=== PATIENT | female | born 1960 | race Two or more races ===

== ENCOUNTER 2023-03-20 22:30 | Emergency (ER) | payer MEDICAID ==
[~2023-03-20] VITALS: Ht 157.5 cm; Wt 86.2 kg
[2023-03-20] MEDS ORDERED: ASPIRIN EC 325 MG TABLET.DR PO ONE (22:56)
[2023-03-20] MEDS: ASPIRIN 325 MG TABLET PO ONE (22:57)
[2023-03-20] MEDS ORDERED: NITROGLYCERIN 0.4 MG/TAB BOTTLE ONE (23:19)
[2023-03-20] MEDS: NITROGLYCERIN 0.4 MG/TAB BOTTLE SL ONE (23:21)
[2023-03-20 23:22] LABS: BASOPHILS # (AUTO) 0.1 K/uL (0.0-0.2); BASOPHILS % (AUTO) 0.9 % (0.0-2.0); EOSINOPHILS # (AUTO) 0.1 K/uL (0.0-0.7); EOSINOPHILS % (AUTO) 0.8 % (0.0-6.0); HEMATOCRIT 45 % (33-45); HEMOGLOBIN 14.6 g/dL (11.5-14.8); LYMPHOCYTES # (AUTO) 2.8 K/uL (0.8-4.8); LYMPHOCYTES % (AUTO) 34.1 % (20.0-44.0); MEAN CORPUSCULAR HEMOGLOBIN 28 PG (26.0-33.0); MEAN CORPUSCULAR HGB CONC 32 g/dl (31.0-36.0); MEAN CORPUSCULAR VOLUME 88 fL (82-100); MONOCYTES # (AUTO) 0.4 K/uL (0.1-1.30); MONOCYTES % (AUTO) 4.6 % (2.0-12.0); NEUTROPHILS % (AUTO) 59.6 % (43.0-81.0); PLATELET COUNT (AUTO) 383 K/uL (150-450); RED BLOOD CELL COUNT(AUTO) 5.17 MIL/uL (4.0-5.2); RED CELL DISTRIBUTION WIDTH 14.5 % (11.5-15.0); WHITE BLOOD COUNT (AUTO) 8.3 K/uL (4.3-11.0)
[2023-03-20 23:38] LABS: D-DIMER 0.39 mg/L(FEU (0.17-0.50); INR 1.07 (0.91-1.10); PARTIAL THROMBOPLASTIN TIME 27.6 SEC (24.3-34.3); PROTHROMBIN TIME 11.3 SECS (9.2-11.1)
[2023-03-20 23:57] LABS: ALANINE AMINOTRANSFERASE 34 U/L (12-78); ALBUMIN 3.7 g/dL (3.4-5.0); ALKALINE PHOSPHATASE 127 U/L (46-116); ASPARTATE AMINOTRANSFERASE 18 U/L (15-37); BILIRUBIN,DIRECT 0.1 mg/dL (0.0-0.2); BILIRUBIN,TOTAL 0.4 mg/dL (0.2-1.0); CALCIUM, SERUM 9.4 mg/dL (8.5-10.1); CARBON DIOXIDE 25 mmol/L (21-32); CHLORIDE 103 mmol/L (98-107); CREATININE 0.7 mg/dL (0.6-1.3); GLUCOSE 103 mg/dL (74-106); POTASSIUM 4.4 mmol/L (3.5-5.1); SODIUM SERUM 138 mmol/L (136-145); TOTAL PROTEIN, SERUM 7.4 g/dL (6.4-8.2); UREA NITROGEN, BLOOD 11 mg/dL (7-18)
[2023-03-21] MEDS ORDERED: LOSA25TA27 PO (03:19)
[2023-03-21] MEDS ORDERED: MELO-105 PO (03:19)
[2023-03-21] MEDS ORDERED: ESCI10TA PO (03:19)
[2023-03-21] MEDS ORDERED: METO50TA16 PO (03:19)
[2023-03-21] MEDS ORDERED: ASPI-992 PO (03:19)
[2023-03-21] MEDS ORDERED: CLOP75TA15 PO (03:19)
[2023-03-21] MEDS ORDERED: EMPA10TA PO (03:19)
[2023-03-21] MEDS ORDERED: ATOR40TA PO (03:19)
[2023-03-21] MEDS ORDERED: OMEP40CA21 PO (03:19)
[2023-03-21] MEDS ORDERED: HYDROCODONE/APAP 5/325MG TABLET ONE ×2 (03:48→09:38)
[2023-03-21] MEDS: HYDROCODONE/APAP 5/325MG TABLET PO PRN (03:49)
[2023-03-21] MEDS ORDERED: ENOXAPARIN SODIUM 80 MG/0.8 ML DISP.SYRIN SQ ONE (07:36)
[2023-03-21] MEDS: ENOXAPARIN SODIUM 80 MG/0.8 ML DISP.SYRIN SQ ONE (07:39)
[2023-03-21] MEDS: METOPROLOL TARTRATE 50 MG TABLET PO SCH (09:00)
[2023-03-21] MEDS: ASPIRIN 325 MG TABLET PO SCH (09:00)
[2023-03-21] MEDS: ATORVASTATIN 40 MG TABLET PO SCH (09:00)
[2023-03-21] MEDS ORDERED: Medication Not On Formulary EA (Empagliflozin (Jardiance) 10 MG) PO SCH (09:00)
[2023-03-21] MEDS: CLOPIDOGREL BISULFATE 75 MG TABLET PO SCH (09:00)
[2023-03-21] MEDS: LOSARTAN POTASSIUM 25 MG TABLET PO SCH (09:00)
[2023-03-21] MEDS: PANTOPRAZOLE 40 MG TABLET.DR PO SCH (09:00)
[2023-03-21] MEDS: ESCITALOPRAM OXALATE (10 MG) 10 MG TABLET PO SCH (09:00)
[2023-03-21] MEDS ORDERED: CLOPIDOGREL BISULFATE 75 MG TABLET ONE (09:39)
[2023-03-21] MEDS ORDERED: ESCITALOPRAM OXALATE (10 MG) 10 MG TABLET ONE (09:39)
[2023-03-21] MEDS ORDERED: ATORVASTATIN 40 MG TABLET ONE (09:39)
[2023-03-21] MEDS ORDERED: ASPIRIN 325 MG TABLET ONE (09:40)
[2023-03-21] MEDS ORDERED: METOPROLOL TARTRATE 50 MG TABLET ONE (09:40)
[2023-03-21] MEDS ORDERED: LOSARTAN POTASSIUM 25 MG TABLET ONE (09:40)
[2023-03-21] MEDS ORDERED: PANTOPRAZOLE 40 MG TABLET.DR PO ONE (09:44)
[2023-03-21 10:02] VITALS: TEMP 98.5
[2023-03-21 11:20] VITALS: BP 130/88; O2SAT 99
== END 2023-03-21 11:33 | disposition short-term general hospital (02) ==
LOC: ER 22:32 → UNDOADMIN 03-21 03:23 → TELE 03-21 03:23 → UNDOADMIN 03-21 09:34 → TRANSITION 03-21 09:34 → UNDODISIN 03-21 11:30 → ER 03-21 11:33
DX: R07.89 Other chest pain (principal); I25.10 Atherosclerotic heart disease of native coronary artery without angina pectoris; M54.9 Dorsalgia, unspecified; I10 Essential (primary) hypertension; E11.9 Type 2 diabetes mellitus without complications; Z79.82 Long term (current) use of aspirin; Z98.890 Other specified postprocedural states; Z79.899 Other long term (current) drug therapy; Z20.822 Contact with and (suspected) exposure to COVID-19
CPT/HCPCS: 99291; 93005; 71045; 85025; 80048; 80076; 85378; 36415; 84484; 85730; 93307; 72131; 87426; 96372; 72128; J1650; G0378